=== PATIENT | male | born 1980 | race Caucasian/White ===

== ENCOUNTER 2021-08-26 13:00 | Outpatient (REF) | payer OTHER, SELFPAY ==
--- NOTE | ~2021-08-26 | XR_ITS ---
EXAMINATION: LEFT SCAPHOID. CLINICAL INFORMATION: Unspecified fall January since none. COMPARISON: None TECHNIQUE: 1 view. FINDINGS: No visible acute fracture or bony abnormality. The soft tissues are normal. XR/XR wrist LT w scaphoid IMPRESSION: Unremarkable left wrist scaphoid exam.
== END 2021-08-26 13:01 | disposition home or self-care (01) ==
LOC: HO.XRAY 13:00
PROVIDERS: PCP Family Medicine; Referring Provider Family Medicine; Visit Provider Hospitalist
DX: M25.532 Pain in left wrist (principal); W00.9XXA Unspecified fall due to ice and snow, initial encounter
CPT/HCPCS: 73110